=== PATIENT | male | born 1995 | race Two or more races ===

== ENCOUNTER 2017-07-09 05:29 | Day surgery (SDC) | payer BC ==
[~2017-07-09] VITALS: Ht 185.4 cm; Wt 117.9 kg
[2017-07-09] VITALS (11 sets, daily range): BP systolic 121–131; BP diastolic 65–75
[~2017-07-09 05:29] MED LIST: IBUPROFEN600 MG PO; NKM
[2017-07-09] MEDS ORDERED: oxyCONTIN 20mg tab ORAL ONE (06:00)
[2017-07-09] MEDS ORDERED: celeBREX 200mg Cap **SURGERY PATIENTS ONLY ORAL ONE ×2 (06:00→06:29)
[2017-07-09] MEDS ORDERED: ceFAZolin 1gm in D5W 55ml IVP ONE (06:00)
[2017-07-09] MEDS ORDERED: ACETAMINOPHEN-1 EAC1 ORAL (06:07)
[2017-07-09] MEDS ORDERED: MOBIC15 MG ORAL (06:07)
[2017-07-09] MEDS ORDERED: Lidocaine 1% 10mg/ml/Epi 0.005mg/ml 30ml vial INJ ONE (06:35)
[2017-07-09] MEDS ORDERED: Lidocaine 1% Plain 30 ml INJ ONE (06:35)
[2017-07-09] MEDS ORDERED: Bupivacaine 0.5% Inj 30 ml vial INJ ONE (06:35)
[2017-07-09] MEDS ORDERED: Ropivacaine 5mg/ml Vial 30ml INJ ONE (06:35)
--- NOTE | 2017-07-09 06:53 | Pre-Procedure Note/Attestation ---
Pre-Procedure Note/Attestation Complete Prior to Procedure Planned Procedure: right Procedure Narrative: rt knee ACL reconstruction Indications for Procedure Pre-Operative Diagnosis: rt knee ACL tear Attestation I attest that I discussed the nature of the procedure; its benefits; risks and complications; and alternatives (and the risks and benefits of such alternatives ), prior to the procedure, with the patient (or the patient's legal automobile rental representative). I attest that, if there was a reasonable possibility of needing a blood transfusion, the patient (or the patient's legal automobile rental representative) was given the [facility] standardized written summary, pursuant to the [place] Blood Safety Act ([place] Health and Safety Code # 1645, as amended). I attest that I re-evaluated the patient just prior to the surgery and that there has been no change in the patient's H&P, except as documented below: NONE RUFINO PECK Jul 09, 2017 06:53
[2017-07-09] MEDS ORDERED: Ketorolac 30mg Inj ONE (07:00)
[2017-07-09] MEDS ORDERED: NS Irrig 4000ml IRRIG ONE ×2 (07:00→08:03)
[2017-07-09] MEDS ORDERED: Propofol 200mg/20ml IV ONE (07:00)
[2017-07-09] MEDS ORDERED: fentaNYL 100 mcg/2 mL IV ONE (07:00)
[2017-07-09] MEDS ORDERED: LR 1000ml ONE (07:00)
[2017-07-09] MEDS ORDERED: Lidocaine 1% MPF 10mg/ml 5ml ONE (07:00)
[2017-07-09] MEDS ORDERED: Morphine Sulfate 10mg/ml Inj ONE (07:00)
--- NOTE | 2017-07-09 08:04 | Anethesia Preoperative Eval ---
Anesthesia Pre-op PMH/ROS General Date of Evaluation: Jul 09, 2017 Time of Evaluation: 06:48 Anesthesiologist: Joe ASA Score: ASA 2 Mallampati Score Class I : Soft palate, uvula, fauces, pillars visible Class II: Soft palate, uvula, fauces visible Class III: Soft palate, base of uvula visible Class IV: Only hard plate visible Mallampati Classification: Class II Surgeon: Yanira Diagnosis: R knee pain Surgical Procedure: R knee arthroscopic ACL repair Anesthesia History: none Family History: no anesthesia problems Allergies: Coded Allergies: LATEX (Verified Allergy, Intermediate, 07/09/17) ITCHING AND SWELLING OF HANDS Medications: see eMAR Past Medical History Cardiovascular: Denies: HTN, CAD, [place], valve dz, arrhythmia, other Pulmonary: Denies: asthma, COPD, [place], other Gastrointestinal/Genitourinary: Reports: GERD - mild, Denies: CRI, ESRD, other Neurologic/Psychiatric: Denies: dementia, CVA, depression/anxiety, TIA, other Endocrine: Denies: DM, hypothyroidism, steroids, other HEENT: Denies: cataract (L), cataract (R), glaucoma, [place] (L), [place] (R), other Hematology/Immune: Denies: anemia, DVT, bleeding disorder, other Musculoskeletal/Integumentary: Denies: OA, RA, DJD, DDD, edema, other Other: obesity PMH Narrative: as above PSxH Narrative: None Anesthesia Pre-op Phys. Exam Physician Exam Last Vital Signs Date Time Temp Pulse Resp B/P (MAP) Pulse Ox O2 Delivery O2 Flow Rate FiO2 07/09/17 06:10 98.1 74 20 131/75 97 Room Air Constitutional: NAD Neurologic: CN 2-12 intact Cardiovascular: RRR, no M/R/G Respiratory: CTA Gastrointestinal: S/NT/ND Airway Exam Mallampati Score: Class II MO: full Neck: flexible ROM: full Teeth: intact Dentures: no upper, no lower Anesthesia Pre-op A/P Labs See chart Studies Pre-op Studies: EKG - NSR Risk Assessment & Plan Assessment: ASA 2 Plan: GA with LMA R femoral nerve block for p/operative pain control Status Change Before Surgery: No Pre-Antibiotics Drug: Ancef 2gr. Given Within 1 Hr of Incision: Yes Time Given: 07:42 BRADEN GASPAR M.D. Jul 09, 2017 08:04
[2017-07-09] MEDS ORDERED: LR 1000ml 1,000 ML IVLG SCH (08:05)
[2017-07-09] MEDS ORDERED: DiphenhydrAMINE 50mg/ml Inj IVP PRN (08:15)
[2017-07-09] MEDS ORDERED: Hydromorphone 0.5mg/0.5ml inj IVP PRN (08:15)
[2017-07-09] MEDS ORDERED: Ketorolac 30mg Inj IV PRN (08:15)
[2017-07-09] MEDS ORDERED: Metoclopramide 10mg/2ml Inj IVP PRN (08:15)
[2017-07-09] MEDS ORDERED: Meperidine 50mg/ml Inj(FOR RIGORS ONLY) IV PRN (08:15)
--- NOTE | 2017-07-09 09:16 | Brief Operative Note ---
Immediate Post Operative Note Operative Note Chief Complaint: rt knee instability Pre-op Diagnosis: rt knee acl tear Procedure: rt knee scope, acl reconstruction Post-op Diagnosis: same as pre-op Findings: consistent w/pre-op dx studies Surgeon: md laila Coning Machine Operator: dorinda cifuentes Anesthesiologist: md grace Anesthesia: general Specimen: none Complications: none Condition: stable Fluids: ns Estimated Blood Loss: minimal Drains: none Implant(s) used?: Yes - biomet RENATO CIFUENTES Jul 09, 2017 09:16
--- NOTE | 2017-07-09 09:33 | Immediate Post-Op Evaluation ---
Immediate Post-Op Evalulation Immediate Post-Op Evalulation Procedure: R arhtroscopic ACL repair Date of Evaluation: Jul 09, 2017 Time of Evaluation: 09:32 IV Fluids: 1200 Blood Products: none Estimated Blood Loss: min Urinary Output: none Blood Pressure Systolic: 126 Blood Pressure Diastolic: 74 Pulse Rate: 87 Respiratory Rate: 22 O2 Sat by Pulse Oximetry: 99 Temperature (Fahrenheit): 98.1 Pain Score (1-10): 2 Nausea: No Vomiting: No Complications none Patient Status: reacts, patent Hydration Status: adequate BRADEN GASPAR M.D. Jul 09, 2017 09:33
--- NOTE | 2017-07-09 10:53 | 48 Hour Post Anesthesia Eval ---
Post Anesthesia Evaluation Procedure: R arhtroscopic ACL repair Date of Evaluation: Jul 09, 2017 Time of Evaluation: 10:51 Blood Pressure Systolic: 128 0: 72 Pulse Rate: 76 Respiratory Rate: 22 Temperature (Fahrenheit): 97.8 O2 Sat by Pulse Oximetry: 98 Airway: patent Nausea: No Vomiting: No Pain Intensity: 2 Hydration Status: adequate Cardiopulmonary Status: stable Mental Status/LOC: patient returned to baseline Follow-up Care/Observations: n/a Post-Anesthesia Complications: none Follow-up care needed: ready to discharge BRADEN GASPAR M.D. Jul 09, 2017 10:53
[2017-07-09] MEDS ORDERED: HYDROmorphone 1mg/ml Carpuject SUBQ PRN (14:01)
[2017-07-09] MEDS ORDERED: Norco 5mg/325mg tab ORAL PRN (14:01)
[2017-07-09] MEDS ORDERED: Tylenol #3 tab (300mg/30mg) ORAL PRN (14:01)
[2017-07-09] MEDS ORDERED: D5 1/2NS 1,000 ML IV SCH (14:01)
--- NOTE | 2017-07-09 21:17 | Operative Note - Dictated ---
DATE OF OPERATION: 07/09/2017 PREOP DX: Right knee anterior cruciate ligament tear. POSTOP DX: Right knee anterior cruciate ligament tear PROCEDURE: Right knee anterior cruciate ligament reconstruction with the combination of hamstring autograft measuring 8.5 mm combined with a tibialis anterior allograft to bring the total width of the graft to 10 mm with ToggleLoc femoral fixation and AperFix tibial fixation. SURGEON: Alden Doyle M.D. POWER SEWING MACHINE OPERATOR: Glo Schmitt PA-C. Director Group Sales was present during the actual operative portion of the case and was important and essential part of the operation. During the operation, the general office assistant held and operated the arthroscopic camera for visualization, assisted by manipulating the leg to help with visualization, and helped with essential parts of the repair process as necessary such as operating surgical instruments under surgeon supervision, suture management, and wound closures. ANESTHESIOLOGIST: Flako Diaz M.D. ANESTHESIA: General LMA anesthesia. TOURNIQUET TIME: 75 minutes. EBL: Minimal. COMPLICATIONS: None. SURGICAL INDICATION: Patient is a 21-year-old male, who sustained the above injury to his knee. The patient was treated non-operative initially, but this did not alleviate the patients symptoms. Therefore, after discussing all non-surgical and surgical options, and discussing all foreseeable risk and benefits of surgery, the patient opted for surgical treatment as described above. PATIENT POSITIONING: Patient was brought to the operating room table and placed supine. All pressure points were well padded. General Anesthesia was induced and a well padded tourniquet was placed on the thigh. The lateral post was placed and positioned to allow for opening of the medial compartment of the knee without placing pressure over the fibular head. Patients entire leg was prepped and draped in the usual sterile fashion. Time out was performed and preop abx was given and after exsanguinating the lower extremity, the tourniquet was inflated to 275 mm of mercury. EXAMINATION OF THE KNEE UNDER ANESTHESIA: Before prepping and draping the knee and while the patient was relaxed under general anesthesia, the knee was examined for ROM, and anterior and posterior, medial and lateral, posterolateral, and posteromedial instability. Pivot shift testing was performed. There was no evidence of loss of motion although there is marked instability on positive pivot shift testing. PORTAL PLACEMENT: The lateral portal was placed with the knee flexed to 90 degrees at the level of inferior border of the patella in line with the lateral border of the patella. A cm skin incision was made with an eleven blade, and using a blunt obturator, the capsule was gently penetrated. Sterile saline solution was then infused inside the knee with the aid of a pump set at 35 mm mercury pressure. Under direct visualization, placement of the medial portal was preliminary judged using a spinal needle, and it was subsequently established using the same technique as the lateral portal. Care was given not to injure the cutaneous branches of the medial Saphenous nerve or the subcutaneous veins. DIAGNOSTIC ARTHROSCOPY: The suprapatellar patellar pouch was visualized. There was no evidence of scar tissue or loose fragments. The medial and lateral patellar facets and trochlear groove articular cartilage was visualized. These structures were intact and were devoid of any articular cartilage damage. The medial plica shelf and the corresponding medial femoral condyle articular cartilage were visualized. There was no significantly thickening of the medial plica shelf and there were no kissing? lesion over the medial femoral condyle. The lateral gutter and the posterolateral corner of the knee were visualized. There were no loose bodies, and the popliteus tendon and other structures of the posterolateral corner of the knee were intact intra-articularly. At this point, the knee was placed in the figure of four position and the lateral compartment was entered. The lateral femoral condyle, lateral tibial plateau, and the anterior, body, and the posterior horn of the lateral meniscus were visualized and probed. The articular surfaces were intact and devoid of articular cartilage damage. The lateral meniscus was completely intact both on its undersurface and on the top. The knee was then placed at 90 degree and the ACL and PCL were visualized and probed. There was a ACL tear and this ACL was incompetent. The PCL was completely intact on visualization and probing and it had excellent tension. The medial compartment was then entered and the medial femoral condyle, medial tibial plateau, and the anterior, body, and the posterior horn of the medial meniscus were visualized and probed. The articular surfaces were intact and devoid of articular cartilage damage. The medial meniscus was completely intact both on its undersurface and on the top. The medial gutter was visualized. There was no evidence of defect or loose fragments. The scope was then brought back to the patella femoral compartment. OPERATIVE ARTHROSCOPY: At this point, all loose debris and fragments were removed with the use of suction motorized shaver. Specific attention was given to assure all visible loose fragments were irrigated out of the knee joint with pump inflow and cannula outflow system. Pursuant to preoperative discussion with the patient, hamstring autograft was used for ACL reconstruction. An incision was made over the medial face of the tibia, medial to the tibial tubercle and approximately 5 cm inferior to the joint line. The incision was taken down through the subcutaneous tissue and the Sartorius fascia was opened using an electrocautery. The Semitendinosus and Gracilis tendons were identified and were released from their tibial attachments. Stay sutures were placed at the end of these tendons. At this point, meticulously, all Gastrocnemius fibrous attachments form these tendons were identified and released with scissors. Once the tendons were both mobile and pulling on them did not create any movement in the Gastrocnemius muscle, a closed loop tendon stripper was used to gently obtain the graft. Care was given not to accidentally truncate the graft. Excellent and lengthy grafts were obtained in this fashion. At this point, the wound was irrigated and packed with gauze for hemostasis which was later removed. The graft was taken to the back table and all muscle tissue was removed from them. The grafts were then placed in a triple antibiotic solution prior to handling. The grafts were then trimmed to total length of 220 mm each. The two ends of the each graft were secured with #2 FiberWire sutures placed using modified Krackow technique up to 25 mm proximal to each end of each graft. All slack was removed from the stitched portion and the grafts were placed on a graft tensioner wrapped in antibiotic soaked sponges in a safe place on the back table. At this point, the graft measured 8.5 mm in thickness. It was deemed that this is too small for a patient size. Therefore, a tibialis anterior allograft was used to add additional collagen to the graft and for a total thickness of 10 mm of the graft. This was prepared and a combination of allograft and autograft were used to do the anterior cruciate ligament reconstruction. Attention was then given to ACL reconstruction. The ACL remnant off of the tibial foot print and femoral notch was completely resected using a combination of suctioned electrocautery and julio. Care was given not to damage the transverse inter-meniscal ligament. Minimal notchplasty was performed using an aggressive 5.5 mm shaver just to be able to gain access and view the ACL attachment in the posterior aspect of the notch. The interns ridge was identified and debrided. The posterior aspect of the notch was then identified. This area was first debrided using a shaver and later cleaned off using a combination of curved curettes and julio. This area was probed to assure that the most posterior aspect of the notch is identified and there is no more bone posteriorly. Care was given not to damage the neurovascular bundle in the posterior compartment of the leg. At this point the scope was removed and using a #15 blade, a 2 cm incision was made on the medial face of the tibia approximately at the level of the tibial tubercle. At this point, the scope was removed and the previous incision site for hamstring tendon harvest was used for tibial tunnel drilling. The soft tissue over the medial face of the tibia was cleaned with an elevator and the area was prepared for drilling of the tibial tunnel. Using a tibial tunnel guide, the position of entry of the guide wire into the knee joint was approximated. The guide was placed on the foot print of previous ACL stump at the medial half of the intertubercle groove to allow the pin to enter the knee joint in the tibial anatomical footprint of the ACL. A guide wire was first placed and the tibial hole was then drilled using a drill. The tibial tunnel was then dilated up to 2 mm using standard dilators at millimeter increments up to the final size of 10 mm. Care was given not to fracture any portion of the tunnel during this process. Once this was completed, a 10 mm femoral tunnel was drilled on the anatomical femoral attachment of the ACL, slightly laterally and inferiorly to the over the top position to allow for rotational stability. The femoral tunnel was drilled up to 35 mm deep. At this point, a Biomet ToggleLoc device was used for femoral fixation. A guide wire was passed thru the femoral tunnel and exited the lateral cortex of the femur and out of the soft tissue and grasp using a cocker. The 3.5 mm drill was used to drill the cortex and while the graft was loaded on the Toggle lock devise, it was then pulled up through the tibial tunnel into the joint and then into the femoral tunnel smoothly using the described technique and the metallic devise was flipped to allow security of the graft. The security of the graft was checked by pulling on the graft multiple times thru the femoral tunnel and assuring that the graft is firmly fixed. The graft was then tensioned by apply approximately 20 lb of traction and and cycling the knee 20 times through full flexion and extension to take out all of the looseness in the graft. At this point, the graft was stabilized in the tibial tunnel with a 10 mm AperFix device placed anterior to graft into the tibial tunnel. This was performed while keeping tension on the graft and applying a gentle posterior drawer to the knee. After completion of the fixation, anterior drawer and Rusty testing were negative and pivot shift was not present. The scope was then placed back into the knee to visualize the graft. There was excellent position of the graft, and upon probing, the graft appeared to have excellent tension. Anterior drawer testing with scope in the knee revealed excellent stability. The knee was brought up to hyperextension and there was no evidence of graft impingement on the notch. CONDITION AT DISCHARGE FROM OPERATING ROOM: The knee was irrigated with copious amount of normal saline at the end of the procedure. The scope was removed and the water was drained. The skin edges were re-approximated and sterile dressing was applied. All lap count and instrument counts were correct. Patient tolerated the procedure well without complications and was taken to the recovery room in stable conditions. Alden Doyle M.D. DR: ROBIN JOB#: [id number] CC:
== END 2017-07-09 11:30 | disposition home or self-care (01) ==
LOC: SUR 05:29
DX: S83.511A Sprain of anterior cruciate ligament of right knee, initial encounter (principal); K21.9 Gastro-esophageal reflux disease without esophagitis; Z91.040 Latex allergy status; X58.XXXA Exposure to other specified factors, initial encounter; Y93.9 Activity, unspecified; Y92.9 Unspecified place or not applicable; Z82.49 Family history of ischemic heart disease and other diseases of the circulatory system
CPT/HCPCS: 15150; 15275; 29888; J0690; J1170; J1885; J2250; J2270; J2405; J2704; J2795; J3010; J7120; 94003; 94150